=== PATIENT | male | born 1970 | race Caucasian/White ===

== ENCOUNTER 2023-10-11 06:08 | Day surgery (SDC) | payer BC ==
[2023-10-10 16:17] VITALS: BMI 25.0
[~2023-10-11 06:08] MED LIST: EPINEPHrine 0.3 MG in Ophthalmic Irrigation Solution 500 ML IRR SCH
[2023-10-11] MEDS ORDERED: Midazolam HCl 2 mg/2 ml Vial ONE (06:56)
[2023-10-11] MEDS ORDERED: PROPOFOL 20 ML ONE (06:56)
[2023-10-11] MEDS ORDERED: fentaNYL 50 mcg/mL 1 mL Vial ONE (06:57)
[2023-10-11] MEDS ORDERED: Maxitrol 0.1% Opth Oint 3.5 GM TUBE ONE (07:44)
[2023-10-11] MEDS ORDERED: Bupivacaine 0.75% 10 ML VIAL ONE (07:44)
[2023-10-11] MEDS ORDERED: Triamcinolone 40 MG/ML VIAL ONE (07:44)
[2023-10-11] MEDS ORDERED: Lidocaine 4% PF 5 ML AMP ONE (07:44)
[2023-10-11] MEDS ORDERED: CEFAZOLIN 1 GM VIAL ONE (07:44)
[2023-10-11] MEDS ORDERED: Lidocaine 1% PF 5 ML VIAL ONE (07:44)
== END 2023-10-11 09:41 | disposition home or self-care (01) ==
LOC: SDC 06:08
PROVIDERS: ATTEND Ophthalmology Retina Specialist
PROC: 08T43ZZ Resection of Right Vitreous, Percutaneous Approach (ICD-10-PCS; principal; 2023-10-11)
DX: H33.41 Traction detachment of retina, right eye (principal)
CPT/HCPCS: C1814; J0171; J0690; J2250; J2704; J3010; J3301; J3490

== ENCOUNTER 2024-03-27 06:19 | Day surgery (SDC) | payer BC ==
[2024-03-26 12:09] VITALS: BMI 25.7
[2024-03-27] MEDS ORDERED: Cyclopentolate 1% Opth Drop 2 ML BOT ONE (06:53)
[2024-03-27] MEDS ORDERED: PHENYLephrine 2.5% Ophth Soln 15 ml Bottle ONE (06:53)
[2024-03-27] MEDS ORDERED: fentaNYL 50 mcg/mL 1 mL Vial ONE (07:53)
[2024-03-27] MEDS ORDERED: Lidocaine 1% PF 5 ML VIAL ONE (07:53)
[2024-03-27] MEDS ORDERED: Midazolam HCl 2 mg/2 ml Vial ONE (07:53)
[2024-03-27] MEDS ORDERED: PROPOFOL 20 ML ONE (07:53)
== END 2024-03-27 09:49 | disposition home or self-care (01) ==
LOC: SDC 06:19
PROVIDERS: ATTEND Ophthalmology Retina Specialist
PROC: 08T43ZZ Resection of Right Vitreous, Percutaneous Approach (ICD-10-PCS; principal; 2024-03-27)
DX: H43.391 Other vitreous opacities, right eye (principal); E11.9 Type 2 diabetes mellitus without complications; I10 Essential (primary) hypertension; Z98.890 Other specified postprocedural states
CPT/HCPCS: J0171; J2250; J2704; J3010